=== PATIENT | female | born 2000 | race Caucasian/White ===

== ENCOUNTER 2024-06-23 14:20 | Emergency (ER) | payer BC ==
[~2024-06-23] VITALS: Ht 170.2 cm; Wt 155.1 kg
[2024-06-23 14:43] VITALS: BP 158/98; PULSE 81; TEMP 97.5; O2SAT 100
--- NOTE | 2024-06-23 14:47 | Physician Documentation ---
History of Present Illness Chief Complaint: Flank Pain Stated Complaint: KIDNEY STONE HPI This 24-year-old female presents with approximately five days of worsening left- sided flank pain and hematuria, patient reports no dysuria or fever. She states that she thinks she has a kidney stone.. Although she has never had one before Medication Reconciliation Allergies: Coded Allergies: No Known Allergies (Unverified , 06/23/24) Physical Exam Vital Signs: Temperature: 97.5, Source: Temporal, Heart Rate: 81, Respiratory Rate: 18, BP: 158/98, Pulse Oximetry: 100, Weight: 155.080 Physical Exam VITALS: Reviewed and as above. GENERAL: Alert, nontoxic appearing, no apparent distress. RESPIRATORY: No increased work of breathing, no respiratory distress, speaking in full clear sentences Progress Results/Orders Results/Orders Vital Signs 06/23/24 14:43 Temp 97.5 Pulse 81 Resp 18 B/P (MAP) 158/98 Pulse Ox 100 Medical Decision Making Findings MSE performed in triage and patient returned to ED lobby by nursing staff Patient does present via CT with a 2 mm nonobstructing stone with mild hydro nephrosis. This meets criteria for outpatient evaluation I am going to start her on Flomax. Toradol did help her symptoms modestly however there was no evidence of obstruction therefore she meets criteria for safe discharge. Differential Dx:Considerations: Include: AAA, -Complete, - Incomplete, -Inevitable, -Missed, -Threatened, Abruptio placentae, Angina/MS, Aortic dissection, Appendicitis, Bowel obstruction, Cholangitis, Cholelithasis, Constipation, Diverticular disease, Esophageal rupture, Esophagitis, Gastritis/PUD, Gastroenteritis, GI hemorrhage, Hernia, Hepatitis, Inflammatory BD, Ischemic bowel, Ovarian cyst/torsion, Pancreatitis, PID, Porphyria, Trauma, intraabdominal, Urinary obstruction, Urinary tract inf ection, Urolithiasis, Other Departure Disposition: 01 HOME / SELF CARE / HOMELESS Impression: Primary Impression: Calculus of kidney Condition: Stable Discharge Instructions: Kidney Stones Referrals: NO PRIMARY CARE PROVIDER (PCP) Education Educated: Patient Educated regarding: diagnosis Signature Scribe Signature: o Attestation: The note accurately reflects work and decisions made by me.Marques Leo NP 06/23/24 17:26 JEFERSON MOSQUERAP June 23, 2024 14:47 MARQUES JEFFERS NP June 23, 2024 16:58
[2024-06-23 15:42] LABS: BASOPHILS % (AUTO) 0.3 % (0-1); EOSINOPHILS # (AUTO) 0.1 X10'3 (0-0.9); EOSINOPHILS % (AUTO) 1.1 % (0-6); HEMOGLOBIN 14.1 g/dl (12.0-16.0); LYMPHOCYTES # (AUTO) 1.8 X10'3 (1.1-4.8); MEAN CORPUSCULAR HEMOGLOBIN 27.9 PG (27.0-31.0); MEAN CORPUSCULAR HGB CONC 32.8 g/dL (33.0-36.5); MEAN CORPUSCULAR VOLUME 85.2 FL (78-98); MEAN PLATELET VOLUME 7.1 FL (7.4-10.4); MONOCYTES # (AUTO) 0.7 X10'3 (0-0.9); NEUTROPHILS # (AUTO) 11.2 X10'3 (1.8-7.7); NEUTROPHILS % (AUTO) 80.6 % (42-75); PLATELET COUNT 375 X10'3 (140-440); RED BLOOD COUNT 5.04 X10'6 (4.20-5.60); RED CELL DISTRIBUTION WIDTH 13.5 % (11.5-14.5); WHITE BLOOD COUNT 13.9 X10'3 (4.5-11.0)
[2024-06-23 16:04] LABS: ALANINE AMINOTRANSFERASE 30 U/L (12-78); ALBUMIN 3.7 G/DL (3.4-5.0); ALBUMIN/GLOBULIN RATIO 0.8 (1.1-1.5); ALKALINE PHOSPHATASE 67 IU/L (46-116); ANION GAP 10 (8-16); ASPARTATE AMINO TRANSFERASE 35 U/L (10-37); BILIRUBIN,TOTAL 0.4 MG/DL (0.1-1.0); BLOOD UREA NITROGEN 18 MG/DL (7-18); CALCIUM 9.1 MG/DL (8.5-10.1); CHLORIDE 106 MMOL/L (99-107); GLUCOSE 120 MG/DL (70-104); LIPASE 27 U/L (16-77); SODIUM 143 MMOL/L (135-145); TOTAL PROTEIN 8.1 G/DL (6.4-8.2); eCRCL 71 ML/MIN; eGFR 56 ML/MIN
[2024-06-23 16:12] LABS: POTASSIUM 4.3 MMOL/L (3.5-5.1)
[2024-06-23 16:22] LABS: URINE HCG NEGATIVE (NEG)
[2024-06-23 16:25] LABS: BILIRUBIN,URINE NEGATIVE (Neg); CLARITY,URINE CLEAR (Clear); COLOR,URINE YELLOW (Yellow); GLUCOSE, URINE NEGATIVE (Neg); KETONES,URINE NEGATIVE (Neg); LEUKOCYTE ESTERASE ,URINE NEGATIVE (Neg); NITRITES, URINE NEGATIVE (Neg); OCCULT BLOOD,URINE MODERATE (Neg); PROTEIN,URINE TRACE mg/dl (Neg); UROBILINOGEN,URINE 0.2 E.U/dL (0.2-1.0)
[2024-06-23 16:28] LABS: UA COLLECTION TYPE CLN CATCH MIDSTREAM
[2024-06-23 16:31] LABS: BACTERIA,URINE 2+ /HPF (Neg); MUCUS STRANDS FEW /LPF (Neg); RENAL CELLS, URINE FEW /HPF; SQUAMOUS EPITHELIAL CELL,UR MANY /LPF (FEW); TRANSITIONAL EPI CELLS,URINE MODERATE /HPF; WBC,URINE 0-4 /HPF (0-4)
[2024-06-23] MEDS ORDERED: ketorolac trometh 30MG/ML vial 30 MG/ML VIAL IV ONE (16:35)
[2024-06-23] MEDS ORDERED: ketorolac trometh 15mg/ml vial 15 MG/ML ML IM ONE (16:50)
--- NOTE | 2024-06-23 17:08 | RADIOLOGY REPORT ---
Procedure: CT CT ABDOMEN PELVIS 06/23/2024 04:46 PM Indication: rule out kidney stone Comparison Study: None Technique: Axial images were obtained and reformatted in coronal and sagittal planes. All CT scans at this medical facility are performed using dose modulation techniques as appropriate to a performed e xam including the following: Automated exposure control was utilized; adjustment of the MA and/or KV according to patient size; and use of iterative reconstruction technique. CT Dose: CTDI volume is 37 mGy. Dose-length product is 2124 mGy*cm FINDINGS: Lower Chest: Unremarkable. Hepatobiliary: Hepatic steatosis. Spleen: Unremarkable. Pancreas: Unremarkable. Adrenal Glands: Unremarkable. tract: The kidneys are normal in size bilaterally . A 2 mm nonobstructing stone seen midpole manan yx of the left kidney. Mild left hydronephrosis and hydroureter. A 2 mm stone is seen left UVJ..The right kidney is unremarkable. The urinary bladder is completely collapsed GI tract: The stomach is grossly normal in appearance. No evidence of small bowel obstruction. The la rge bowel is unremarkable. Lymphatics: No mesenteric, retroperitoneal or periportal lymphadenopathy. Vasculature: The abdominal aorta is normal in caliber. Pelvic Organs: Unremarkable Bones/soft tissues: No acute abnormality. Other: None. IMPRESSION: 1. Mild left hydronephrosis and hydroureter due to a 2 mm stone at the UVJ.A 2 mm 2. Nonobstructing stone seen midpole of the left kidney. 3. Hepatic steatosis.
[2024-06-23 17:11] VITALS: RESP 15
[2024-06-23] MEDS: ketorolac trometh 30MG/ML vial 30 MG/ML VIAL IM ONE (17:11)
== END 2024-06-23 17:55 | disposition home or self-care (01) ==
LOC: ER 14:21
DX: N20.0 Calculus of kidney (principal)
CPT/HCPCS: 36415; 74176; 80053; 81001; 81025; 83690; 85025; 96372; 99285; J1885